=== PATIENT | male | born 1980 | race Caucasian/White ===

== ENCOUNTER 2022-08-07 18:00 | Outpatient (CLI) | payer BC | END 2022-08-07 18:01 | disposition home or self-care (01) | LOC: SLEEPLAB 18:00 | PROVIDERS: ATTEND Internal Medicine | DX: G47.33 Obstructive sleep apnea (adult) (pediatric) (principal); R06.83 Snoring; R51.9 Headache, unspecified | CPT/HCPCS: 95800 ==

== ENCOUNTER 2023-09-12 14:29 | Outpatient (CLI) | payer BC | END 2023-09-12 14:30 | disposition home or self-care (01) | LOC: BICRAD 14:29 | PROVIDERS: ATTEND Specialist | DX: M51.16 Intervertebral disc disorders with radiculopathy, lumbar region (principal); M47.26 Other spondylosis with radiculopathy, lumbar region | CPT/HCPCS: 72120 ==

== ENCOUNTER 2023-09-19 14:01 | Outpatient (CLI) | payer BC | END 2023-09-19 14:02 | disposition home or self-care (01) | LOC: SCSMRI 14:01 | PROVIDERS: ATTEND Specialist | DX: M51.16 Intervertebral disc disorders with radiculopathy, lumbar region (principal) | CPT/HCPCS: 72146; 72148 ==